=== PATIENT | female | born 1945 | race Caucasian/White ===

== ENCOUNTER → 2016-05-13 | Outpatient (CLI) | payer BC | END | disposition home or self-care (01) | LOC: KCIC MAMMO 12:33 | PROVIDERS: ATTEND Family Medicine | DX: Z12.31 Encounter for screening mammogram for malignant neoplasm of breast (principal) | CPT/HCPCS: G0202; 77067 ==

== ENCOUNTER → 2016-09-24 | Outpatient (CLI) | payer BC ==
--- NOTE | 2016-09-24 15:53 | KCIC ---
Indication: Chronic low back pain. Time of exam 3:25 PM There is right convexity lumbar scoliotic curvature. There is normal lordotic curvature. The vertebral body heights are maintained. No acute compression fracture is seen. There is significant degenerative disc disease at the L2-3 level with disc space narrowing, marginal spurring and endplate sclerosis. No definite spondylolysis or spondylolisthesis is seen. IMPRESSION: Lumbar spondylosis and scoliosis. No acute abnormality is detected. Electronically signed by: Juan Gold MD (09/24/2016 3:50 PM) [id number]
--- NOTE | 2016-09-24 15:54 | KCIC ---
Indication: Left hip pain. Time of exam 3:31 PM Femoral acetabular alignment is normal. There is joint space narrowing of bilateral hips compatible with degenerative change. The femoral heads and necks are intact. No fractures are seen. The rami are intact. IMPRESSION: Osteoarthritic changes. No acute bony abnormality is detected. Electronically signed by: Juan Gold MD (09/24/2016 3:51 PM) [id number]
== END | disposition home or self-care (01) ==
LOC: KCIC 15:12
PROVIDERS: ATTEND Physician Assistant Medical
DX: M16.12 Unilateral primary osteoarthritis, left hip (principal); M54.5 Low back pain; G89.29 Other chronic pain
CPT/HCPCS: 72110; 73502

== ENCOUNTER → 2016-12-16 | Outpatient (CLI) | payer BC ==
--- NOTE | 2016-12-16 12:51 | KCIC ---
Bone mineral density study dated 12/16/2016. Indication: Postmenopausal screening. Findings: Lower lumbar spine: BMD (g/cm2): Total L1-L4.......... 0.874. . T-Score: Total L1-L4.................... -1.6. Z-Score: Total L1-L4 ................... 0.6. Left Hip: BMD (g/cm2): Total .......... 0.767. . T-Score: Total .................... -1.4. Z-Score: Total ................... 0.1. World Health Organization criteria for BMD interpretation classify patients as Normal (T-score at or above -1.0), Osteopenic (T-score between -1.0 and -2.5), or Osteoporotic (T-score at or below -2.5). Impression: According to the World Health Organization, bone mineral density values within the lower lumbar spine and left femoral neck correspond to osteopenia. Electronically signed by: Akin Alva MD (12/16/2016 12:48 PM) [facility]-[id number]
== END | disposition home or self-care (01) ==
LOC: KCIC DEXA 10:59
PROVIDERS: ATTEND Family Medicine
DX: M85.80 Other specified disorders of bone density and structure, unspecified site (principal); Z78.0 Asymptomatic menopausal state
CPT/HCPCS: 77080

== ENCOUNTER → 2017-05-18 | Outpatient (CLI) | payer BC | END | disposition home or self-care (01) | LOC: KCIC MAMMO 08:58 | DX: Z12.31 Encounter for screening mammogram for malignant neoplasm of breast (principal) | CPT/HCPCS: 77063; 77067 ==

== ENCOUNTER → 2019-01-04 | Outpatient (CLI) | payer BC ==
--- NOTE | 2019-01-04 11:42 | RAD ---
MR#: [id number] Date of Study: 01/04/2019 Ordering Physician: DEVONTE KENNEDY, Referring Physician: MOOKIE BLANK Tech: RT April (R) (N) APPROVED REPORT Test Type: Exercise Stress Nurse/Tech: Yoon Romero RN Test Indications: Shortness of breath on exertion Cardiac History: Hypertension, Diabetes Medications: See Electronic Medical Record Medical History: See Electronic Medical Record Resting ECG: SR with BBB Resting Heart Rate: 68 bpm Resting Blood Pressure: 148/58mmHg Pretest Chest Pain: No chest pain Nurse/Tech Notes S1,S2 and lungs clear to auscultation. Consent: The procedure was explained to the patient in lay terms. Informed consent was witnessed. Earnest eout was entered into [employer]. History and Stress Test performed by LEO Bazzi, VICENTA (R) (N) Stress Symptoms Dyspnea,Fatigue POST EXERCISE Reason for Termination: Reached target heart rate Target HR: Yes Max HR: 142 bpm 113% of Maximum Predicted HR: 125 bpm Exercise duration: 7:40 min:sec, 3 Stage Exercise capacity: 10METs Max Blood Pressure: 170/63mmHg Blood Pressure response to exercise: Normal blood pressure response during stress. Heart Rate response to exercise: WNL Chest Pain: No. Arrhythmia: No. INTERPRETATION Stress EKG Conclusion: The resting EKG shows a sinus rhythm, nonspecific ST-T wave changes and poor R -wave progression. The stress EKG shows no significant change from baseline. No EKG evidence of stressed induced ischemia. Imaging Protocol IMAGE PROTOCOL: Rest Tc-99m/stress Tc-99m 1 day Rest: Stress: Viability: Radiopharm.Tc99m [id number] Sestamibi Trkh96pIu 33mCi Duration 13min. 13min. Img Date 01/04/2019 01/04/2019 Inj-Img [id number]. 60min. Rest Admin Site:IV - Right AntecubitalAdministrator:MINH Berger (R)(N) Stress Admin Site: IV - Right AntecubitalAdministrator: LEO Bazzi, ARRT (R)(N) STRESS DATA End Diast. Vol.64.0mlLVEDV index BSA38.0ml End Syst. Vol.8.0mlLVESV index BSA5.0ml Myocardial Mass98.0gEject. Sdsfspni30.0% Stress Scores Regional WT0.00Summed WT0.00 Regional WM0.00Summed WM3.00 LV Perfusion The stress scans showed no significant defects. The rest scans showed no significant defects. Nuclear imaging shows no reversible ischemia or infarct. Wall Motion Left ventricular systolic function is normal with no regional wall motion abnormalities and an ejecti on fraction of greater than 70%. LV Perf. Quant 17 Seg. SSS0.00 17 Seg. SRS0.00 17 Seg. SDS0.00 Stress Defect Extent (% LAD)0.00Rest Defect Extent (% LAD)0.00Rev. Defect Extent (% LAD)0.00 Stress Defect Extent (% LCX) 0.00Rest Defect Extent (% LCX)0.00Rev. Defect Extent (% LCX)0.00 Stress Defect Extent (% RCA)0.00Rest Defect Extent (% RCA)0.00Rev. Defect Extent (% RCA)0.00 Stress Defect Extent (% SILVIO)0.00Rest Defect Extent (% SILVIO)0.00Rev. Defect Extent (% SILVIO)0.00 Conclusion 1. Good exercise tolerance. 2. No chest pain with exertion. 3. No EKG evidence of stressed induced ischemia. 4. Nuclear imaging shows no reversible ischemia or infarct. 5. Normal left ventricular systolic function with an ejection fraction of greater than 70%. 6. Low risk treadmill nuclear stress test. Signed by : Harrison Hamilton MD Electronically Approved : 01/04/2019 11:42:11
== END | disposition home or self-care (01) ==
LOC: NM 09:17
PROVIDERS: ATTEND Physician Assistant Medical
DX: I45.4 Nonspecific intraventricular block (principal); I10 Essential (primary) hypertension; E11.9 Type 2 diabetes mellitus without complications; R06.00 Dyspnea, unspecified; R53.83 Other fatigue
CPT/HCPCS: 78452; 93017; A9500

== ENCOUNTER → 2020-04-24 | Outpatient (CLI) | payer BC ==
--- NOTE | 2020-04-24 14:28 | KCIC ---
EXAM: DUAL ENERGY X-RAY ABSORPTIOMETRY (DEXA). HISTORY: Postmenopausal screening. FINDINGS: The lowest measured T-score is -1.6 in the left hip, based on a bone mineral density of 0.7 42 g/cm^2. Refer to the worksheets for full detail. There has been a 3.2 percent decrease in density of the left hip and 8.1 percent decrease in density of the lumbar spine compared to a study performed 12/16/2016. IMPRESSION: 1. Low bone mass. Bone mineral density yields a T-score between -1.0 and -2.5. Fracture risk is incre ased. 2. FRAX report: Not calculated. METHODOLOGY: Dual energy x-ray absorptiometry was performed to measure bone mineral density. The foll owing analysis is based on the 2019 Official Positions of the International Society for Clinical Dens itometry: Measurements of the hips and the average of L1-L4 are preferred. When the spine and/or hip cannot be feasibly measured or interpreted, or in the setting of hyperparathyroidism, distal radial bone minera l density may be measured. The lumbar spine T-score is based on the average bone mineral density of L1-L4. In the setting of art ifact or anatomic abnormality, some lumbar levels may be excluded, and the remaining levels used for calculation. A single lumbar level is not used for diagnosis, and if only a single level is available for assessment, another anatomic site will be used to assign a diagnosis. The hip T-score is based on the bone mineral density measurement of the femoral neck or total proxima l femur of either side, whichever is lowest. Bilateral mean values are not used for diagnosis. The forearm T-score is derived from 33% of the distal radius of the nondominant forearm. Electronically signed by: Maryellen Reeves MD (04/24/2020 2:25 PM) [id number]
--- NOTE | 2020-04-24 14:31 | KCIC ---
EXAM: Bilateral digital screening mammogram with tomosynthesis. HISTORY: 75-year-old female presents for screening mammography. TECHNIQUE: Full-field digital craniocaudal and mediolateral oblique 2D and 3D tomosynthesis images of both breasts are obtained for evaluation. Computer aided detection was applied. COMPARISON: 05/18/2017 BREAST PARENCHYMAL DENSITY: Level C - Heterogeneously dense. FINDINGS: There is no new suspicious mass, microcalcification or region of architectural distortion. IMPRESSION: BI-RADS Category 2: Benign finding(s). RECOMMENDATION: Annual mammography is recommended. If your mammogram demonstrates that you have dense breast tissue, which could hide abnormalities, and if you have other risk factors for breast cancer that have been identified, you might benefit from s upplemental screening tests that may be suggested by your ordering physician. Dense breast tissue, i n and of itself, is a relatively common condition. This information is not provided to cause undue c oncern, but rather to raise your awareness and to promote discussion with your physician regarding th e presence of other risk factors, in addition to dense breast tissue. A report of your mammography re sults will be sent to you and your physician. You should contact your physician if you have any ques tions or concerns regarding this report. Mammography is a sensitive method for finding small breast cancers, but it does not detect them all a nd is not a substitute for careful clinical examination. A negative mammogram does not negate a clin ically suspicious finding and should not result in delay in biopsying a clinically suspicious abnorma lity. PQRS compliance statement - Patient information was entered into a reminder system with a target due date for the next mammogram. "Our facility is accredited by the [employer] Mammography Program." Electronically signed by: Maryellen Reeves MD (04/24/2020 2:28 PM) [id number]
== END ==
LOC: KCIC MAMMO 12:52
PROVIDERS: ATTEND Physician Assistant Medical
DX: Z12.31 Encounter for screening mammogram for malignant neoplasm of breast (principal); Z13.820 Encounter for screening for osteoporosis; Z78.0 Asymptomatic menopausal state
CPT/HCPCS: 77063; 77067; 77080

== ENCOUNTER → 2020-08-20 | Outpatient (CLI) | payer BC ==
--- NOTE | 2020-08-20 14:06 | KCIC ---
EXAM: Left wrist, 3 views. HISTORY: Pain and swelling. COMPARISON: None. FINDINGS: 3 views of the left wrist are obtained. There is severe triscaphe the and first carpal meta carpal joint space narrowing with subchondral sclerosis and spurring. There are few small chronic fra gmented spurs and there is bony remodeling. There is chondral calcinosis involving the triangular fib rocartilage complex. IMPRESSION: 1. Severe triscaphe and first carpometacarpal osteoarthritis. 2. Chondrocalcinosis involving the triangular fibrocartilage complex. Electronically signed by: Maryellen Reeves MD (08/20/2020 2:04 PM) [id number]
== END ==
LOC: KCIC 13:40
PROVIDERS: ATTEND Physician Assistant
DX: M19.032 Primary osteoarthritis, left wrist (principal); M25.432 Effusion, left wrist; M11.232 Other chondrocalcinosis, left wrist
CPT/HCPCS: 73110

== ENCOUNTER → 2021-04-28 | Outpatient (CLI) | payer BC ==
--- NOTE | 2021-04-28 12:30 | KCIC ---
Bilateral digital screening mammograms with 3-D tomosynthesis: Reason for examination: Routine screening. Comparison is made to previous studies dated back to 06/03/2015. Bilateral mammograms in CC and oblique projections were obtained with 2-D imaging and 3-D tomosynthes is imaging on a Siemens Inspiration unit and reviewed on the workstation. Interpretation was made wit h the benefit of CAD. The skin and nipples show no abnormalities. No abnormal axillary lymph nodes are seen. The breast par enchyma is heterogeneously dense. (Breast density: Category C.) There are no dominant masses, suspici ous calcifications or architectural distortion. Impression: No evidence of malignancy. Recommend routine screening. Your patient's mammogram demonstrates that she has dense breast tissue (breast density category C or D), which could hide abnormalities, and if she has other risk factors for breast cancer that have bee n identified, she might benefit from supplemental screening tests that may be suggested by you as her ordering physician. Dense breast tissue, in and of itself, is a relatively common condition. Therefo re, this information is not provided to cause undue concern, but rather to raise your awareness and t o promote discussion with your patient regarding the presence of other risk factors, in addition to d ense breast tissue. Your patient's mammography results will be sent to her. BI-RAD Category 1: Negative. "Our facility is accredited by the [employer] Mammography Program." This patient's information has been entered into a reminder system for the patient to be notified wit h the results of her examination and a target date for the next mammogram. Electronically signed by: Yamileth Ruiz MD (04/28/2021 12:28 PM) [facility]
== END ==
LOC: KCIC MAMMO 10:59
PROVIDERS: ATTEND Family Medicine
DX: Z12.31 Encounter for screening mammogram for malignant neoplasm of breast (principal)
CPT/HCPCS: 77063; 77067

== ENCOUNTER → 2021-05-13 | Outpatient (CLI) | payer BC ==
--- NOTE | 2021-05-13 17:55 | KCIC ---
XR LUMBAR SPINE 4+V History: Chronic low back pain. Comparison: 09/24/2016 Technique: 5 views of the lumbar spine. Findings: There are 5 non-rib bearing lumbar vertebral segments. There is no evidence of fracture. No destructive osseous lesions. Dextro convex lumbar scoliosis apex at L3-L4 with severe degenerative changes at the inner curve at L 3-L4. Multilevel lower lumbar facet hypertrophy. Moderate disc space narrowing L1-L2, L3-L4 and L4-L5. Multilevel neural foraminal narrowing. Sacroiliac joints are unremarkable. Soft tissues are unremarkable. IMPRESSION: 1. Dextroconvex lumbar scoliosis with multilevel disc and facet disease causing potential for forami nal stenoses at multiple levels. If there is concern for lumbar radiculopathy, recommend MRI. Electronically signed by: Anthony Light MD (05/13/2021 5:53 PM) [id number]
== END ==
LOC: KCIC 11:36
PROVIDERS: ATTEND Physician Assistant
DX: G89.29 Other chronic pain (principal); M41.86 Other forms of scoliosis, lumbar region; M48.061 Spinal stenosis, lumbar region without neurogenic claudication; M47.896 Other spondylosis, lumbar region
CPT/HCPCS: 72110